=== PATIENT | female | born 1955 ===

== ENCOUNTER 2019-03-19 12:32 | Inpatient (IN) | payer BC, OTHER ==
[~2019-03-19] VITALS: Ht 167.6 cm; Wt 52.7 kg
--- NOTE | 2019-03-19 12:48 | NUR ---
BIB [facility] FROM [facility]. PT WOKE THIS MORNING AT 0700 AND FELT WEAK, ATTEMPTED TO STAND AND FELL TO THE FLOOR, DENIES LOC. FAMILY HELPED HER BACK INTO BED AND WHEN SHE CONTINUED TO BE TOO WEAK TO GET OOB THEY CALLED 911, PER RPT FROM [facility], PT WAS A&0 = 0 WITH RA SAT IN LOW 80% AND INITIAL BP OF 86/50, FSBS = 90. EMS GAVE 300ML NS, BY THE TIME [facility] ARRIVED PT WAS A&0 X 4. PT NOW PRESENTS A&O X 4, PROCTOR W/O DIFFICULTY ALTHOUGH IS STILL WEAK T/O. VSS NOTED, ALL MONITORS PALCED AND EKG COMPLETED. DR PALM AT BEDSIDE, PT ASSESSMENT REVIEWED AND ORDERS REC'D SBAR RPT TO VALERIANO YEAGER
--- NOTE | 2019-03-19 12:55 | NUR ---
PT MEDICATED PER EMAR. NO DIFFICULTY SWALLOWING PO MEDS.
--- NOTE | 2019-03-19 12:57 | NUR ---
RAD AND RT IN ROOM.
[2019-03-19] MEDS ORDERED: SODIUM CHLORIDE FLUSH 10ML SYR IVF ONE (13:00)
--- NOTE | 2019-03-19 13:27 | NUR ---
PT RESTING ON GURNEY. NADN. KWOK.
[2019-03-19 13:28] LABS: BASOPHILS # (AUTO) 0.04 x10^3/uL (0-0.1); BASOPHILS % (AUTO) 1 % (0-1); EOSINOPHILS # (AUTO) 0.02 x10^3/uL (0-0.4); EOSINOPHILS % (AUTO) 0 % (1-7); LYMPHOCYTES # (AUTO) 1.26 x10^3/uL (1-3.4); LYMPHOCYTES % (AUTO) 20 % (22-44); MD NO; MEAN CORPUSCULAR HEMOGLOBIN 30.9 pg (27.0-34.8); MEAN CORPUSCULAR HGB CONC 33.1 g/dL (32.4-35.8); MEAN CORPUSCULAR VOLUME 93.2 fL (80-100); MEAN PLATELET VOLUME 8.5 fL (7.4-10.4); MONOCYTES # (AUTO) 0.34 x10^3/uL (0.2-0.8); MONOCYTES % (AUTO) 5 % (2-9); NEUTROPHILS # (AUTO) 4.82 x10^3/uL (1.8-6.8); NEUTROPHILS % (AUTO) 74 % (42-75); PLATELET COUNT 220 x10^3/uL (130-400); RED BLOOD COUNT 4.65 x10^6/uL (3.82-5.3); RED CELL DISTRIBUTION WIDTH 15.3 % (9.6-15.2)
--- NOTE | 2019-03-19 13:37 | NUR ---
PT BP 79/46. NOTFIED 1L LR BOLUS STARTED.
[2019-03-19 13:38] LABS: ALBUMIN 3.9 g/dL (3.4-5.0); ANION GAP 10 mmol/L (5-15); CALCIUM 9.5 mg/dL (8.5-10.1); CHLORIDE 99 mmol/L (98-107); CREATININE 2.31 mg/dL (0.55-1.02)
[2019-03-19 13:42] LABS: TROPONIN I 0.046 ng/mL (0.000-0.045)
--- NOTE | 2019-03-19 13:46 | NUR ---
ERP AT BEDSIDE ASSESSING PT. IVF INITIATED. PT AND BP CUFF REPOSITIONED AND REPEAT BP SHOWS 97/63. ERP AWARE OF PT BUN/CREATININE LEVEL.
[2019-03-19] MEDS ORDERED: POTASSIUM CHLORIDE 20 MEQ TAB.ER.PRT ONE (13:50)
[2019-03-19] MEDS ORDERED: POTASSIUM CHLORIDE 20 MEQ TAB.ER.PRT PO ONE (14:00)
[2019-03-19] MEDS ORDERED: LACTATED RINGERS 1,000 ML IVBOLUS ONE (14:00)
[2019-03-19] MEDS ORDERED: SODIUM CHLORIDE 0.9% 1,000ML IVBOLUS ONE (14:30)
[2019-03-19] MEDS ORDERED: TRAZ-175 PO (14:31)
[2019-03-19] MEDS ORDERED: LOSA100T14 PO (14:31)
[2019-03-19] MEDS ORDERED: CLOP75TA PO (14:31)
[2019-03-19] MEDS ORDERED: PRAM0.752 PO (14:31)
[2019-03-19] MEDS ORDERED: FAMO40TA61 PO (14:31)
--- NOTE | 2019-03-19 14:57 | NUR ---
REPORT GIVEN TO SAMSON BAL. PT READY FOR TRANSFER.
[2019-03-19 15:33] VITALS: BP 111/65
[2019-03-19] MEDS: methylPREDNISolone SOD SUCC 40 MG/ML IV SCH (15:54)
[2019-03-19] MEDS: HEPARIN 5,000 UNITS/ML, 1ML SQ SCH (15:55)
[2019-03-19] MEDS: SODIUM CHLORIDE 0.9% 1,000 ML IV SCH (17:28)
[2019-03-19 18:20] LABS: TROPONIN I 0.024 ng/mL (0.000-0.045)
[2019-03-19 18:58] LABS: MICROSCOPIC INDICATED
[2019-03-19 19:05] VITALS: BP 128/75
[2019-03-19 19:10] LABS: CULTURE INDICATED? YES
[2019-03-19 23:57] LABS: TROPONIN I < 0.015 ng/mL (0.000-0.045)
[2019-03-20 00:19] VITALS: BP 145/75
[2019-03-20] MEDS: HEPARIN 5,000 UNITS/ML, 1ML SQ SCH (02:30)
[2019-03-20] MEDS: SODIUM CHLORIDE 0.9% 1,000 ML IV SCH (03:02)
[2019-03-20] MEDS: methylPREDNISolone SOD SUCC 40 MG/ML IV SCH (03:02)
[2019-03-20 05:15] LABS: ANION GAP 7 mmol/L (5-15); CALCIUM 8.9 mg/dL (8.5-10.1); CHLORIDE 106 mmol/L (98-107)
[2019-03-20 05:18] LABS: CREATININE 1.51 mg/dL (0.55-1.02)
[2019-03-20 05:27] LABS: BASOPHILS % (AUTO) 0 % (0-1); EOSINOPHILS % (AUTO) 0 % (1-7); LYMPHOCYTES % (AUTO) 10 % (22-44); MD NO; MEAN CORPUSCULAR HEMOGLOBIN 31.5 pg (27.0-34.8); MEAN CORPUSCULAR HGB CONC 33.7 g/dL (32.4-35.8); MEAN CORPUSCULAR VOLUME 93.5 fL (80-100); MEAN PLATELET VOLUME 8.9 fL (7.4-10.4); MONOCYTES % (AUTO) 2 % (2-9); NEUTROPHILS # (AUTO) 5.31 x10^3/uL (1.8-6.8); NEUTROPHILS % (AUTO) 88 % (42-75); PLATELET COUNT 168 x10^3/uL (130-400); RED BLOOD COUNT 3.91 x10^6/uL (3.82-5.3); RED CELL DISTRIBUTION WIDTH 15.4 % (9.6-15.2)
[2019-03-20 07:52] VITALS: BP 164/79
[2019-03-20] MEDS ORDERED: DOXYCYCLINE 100MG TABLET ONE (08:39)
[2019-03-20] MEDS ORDERED: CLOPIDOGREL 75 MG TABLET PO SCH (09:00)
[2019-03-20] MEDS ORDERED: DOXYCYCLINE 100MG TABLET PO SCH (09:00)
== END 2019-03-20 09:05 | disposition left against medical advice (07) | DRG 189 ==
LOC: ED 13:29 → EDIP 13:48 → 4WST 15:18
PROVIDERS: ADMIT Internal Medicine Infectious Disease; ATTEND Internal Medicine Infectious Disease
DX: J96.01 Acute respiratory failure with hypoxia (principal); N17.0 Acute kidney failure with tubular necrosis; J44.1 Chronic obstructive pulmonary disease with (acute) exacerbation; E86.0 Dehydration; E87.6 Hypokalemia; F17.210 Nicotine dependence, cigarettes, uncomplicated; I11.0 Hypertensive heart disease with heart failure; I25.10 Atherosclerotic heart disease of native coronary artery without angina pectoris; I25.2 Old myocardial infarction; I27.20 Pulmonary hypertension, unspecified; I50.9 Heart failure, unspecified; W18.39XA Other fall on same level, initial encounter; Y93.89 Activity, other specified; Y92.89 Other specified places as the place of occurrence of the external cause; Y99.8 Other external cause status; Z63.4 Disappearance and death of family member; Z80.49 Family history of malignant neoplasm of other genital organs; Z86.79 Personal history of other diseases of the circulatory system; Z95.5 Presence of coronary angioplasty implant and graft; Z88.0 Allergy status to penicillin; Z88.2 Allergy status to sulfonamides; Z88.8 Allergy status to other drugs, medicaments and biological substances
CPT/HCPCS: 36415; 71045; 80048; 81001; 82040; 82570; 83735; 83880; 84100; 84300; 84484; 85025; 87086; 93005; 99285; G0378; J1644; J2920; J7030; J7120; J7512